=== PATIENT | male | born 1955 ===

== ENCOUNTER 2025-02-12 13:34 | Emergency (ER) ==
[~2025-02-12] VITALS: Ht 170.2 cm; Wt 90.7 kg
[2025-02-12 14:58] LABS: PLATELET COUNT (AUTO) 218 K/uL (152-348); RED BLOOD CELL COUNT(AUTO) 4.78 MIL/uL (4.06-5.63); RED CELL DISTRIBUTION WIDTH 13.9 % (12.1-16.2); WHITE BLOOD COUNT (AUTO) 11.3 K/uL (3.6-10.2)
[2025-02-12 15:10] LABS: CREATININE 1.4 mg/dL (0.6-1.3); SODIUM SERUM 140.0 mmol/L (136-145); UREA NITROGEN, BLOOD 21.0 mg/dL (7-18)
[2025-02-12 15:16] LABS: ASPARTATE AMINOTRANSFERASE 15.0 U/L (15-37); TOTAL PROTEIN, SERUM 7.5 g/dL (6.4-8.2)
[2025-02-12] MEDS ORDERED: CLONIDINE HCL 0.1 MG TABLET ONE (15:57)
[2025-02-12] MEDS: CLONIDINE HCL 0.1 MG TABLET PO ONE (16:02)
[2025-02-12 17:03] VITALS: BP 173/97
[2025-02-12 19:58] VITALS: BP 169/92; O2SAT 97
== END 2025-02-12 19:58 | disposition home or self-care (01) ==
LOC: ER 13:44
DX: I87.2 Venous insufficiency (chronic) (peripheral) (principal); I50.9 Heart failure, unspecified; E66.9 Obesity, unspecified; Z68.30 Body mass index [BMI] 30.0-30.9, adult
CPT/HCPCS: 36415; 71045; 85025; A4606; A4663